=== PATIENT | female | born 1980 | race Caucasian/White ===

== ENCOUNTER 2016-12-26 07:56 | Emergency (ER) | payer BC ==
[2016-12-26] MEDS ORDERED: Ketorolac 60 MG/2 ML SDV IM ONE (08:04)
--- NOTE | 2016-12-26 08:07 | EDM.PDOC ---
ED HPI GENERAL MEDICAL PROBLEM - General Chief Complaint: Back Pain or Injury Stated Complaint: BACK PAIN Time Seen by Provider: 12/26/16 08:04 - History of Present Illness INITIAL COMMENTS - FREE TEXT/NARRATIVE: HISTORY AND PHYSICAL: History of present illness: Patient is a 36-year-old female presents with acute low back pain encourage his colon obscures and bent over to [employer] an item she states this is confined to her lower back she denies numbness weakness incontinence or retention or bowel or bladder she denied prior back problems or concerns Review of systems: As per history of present illness and below otherwise all systems reviewed and negative. Past medical history: As per history of present illness and as reviewed below otherwise noncontributory. Surgical history: As per history of present illness and as reviewed below otherwise noncontributory. Social history: No reported history of drug or alcohol abuse. Family history: As per history of present illness and as reviewed below otherwise noncontributory. Physical exam: HEENT: Atraumatic, normocephalic, pupils reactive, negative for conjunctival pallor or scleral icterus, mucous membranes moist, throat clear, neck supple, nontender, trachea midline. Lungs: Clear to auscultation, breath sounds equal bilaterally, chest nontender. Heart: S1S2, regular, negative for clicks, rubs, or JVD. Abdomen: Soft, nondistended, nontender. Negative for masses or hepatosplenomegaly. Negative for costovertebral tenderness. Pelvis: Stable nontender. Genitourinary: Deferred. Rectal: Deferred. Extremities: Atraumatic, negative for cords or calf pain. Neurovascular unremarkable. Neuro: Awake, alert, oriented. Cranial nerves II through XII unremarkable. Cerebellum unremarkable. Motor and sensory unremarkable throughout. Exam nonfocal. Back: Patient is paravertebral tenderness at the level of the lumbar spine no vertebral body or point tenderness noted patient is able to stand on her toes back on her heels deep tendon reflexes are normal motor and sensory are normal Diagnostics: X-ray lumbar spine [facility] [place] [facility]: Toradol 60 mg IM Impression: #1 acute lumbar strain Definitive disposition and diagnosis as appropriate pending reevaluation and review of above. - Related Data Allergies Allergy/AdvReac Type Severity Reaction Status Date / Time Penicillins Allergy Hives Verified 12/26/16 08:01 vancomycin Allergy Hives Verified 12/26/16 08:01 Tape AdvReac Mild Other Uncoded 12/26/16 08:01 Home Meds: Home Meds Pregabalin [Lyrica] 200 mg PO TID 06/06/15 [History] Albuterol [Proair HFA] 1 inh INH ASDIRECTED PRN 06/19/15 [History] ClonazePAM [KlonoPIN] 0.5 tab PO TID PRN 06/19/15 [History] Etonogestrel [Nexplanon] 68 mg SQ ONETIME 06/19/15 [History] DULoxetine [Cymbalta] 20 mg PO DAILY 12/26/16 [History] Montelukast [Singulair] 10 mg PO BEDTIME 12/26/16 [History] Past Medical History Cardiovascular History: Reports: None Respiratory History: Reports: Asthma Other Respiratory History: history of smoking for 1 yr, QUIT 15 yrs ago Gastrointestinal History: Reports: Cholelithiasis Other Gastrointestinal History: Heartburn in only, Genitourinary History: Reports: None, Other (see below) Other Genitourinary History: "stage 4 kidney failure" D[employer] BU[employer]ER History: Reports: Musculoskeletal History: Reports: Back pain, chronic, Fibromyalgia Other Musculoskeletal History: Some low back pain Neurological History: Reports: Headaches, chronic Other Neuro History: Occasional headaches Psychiatric History: Reports: Anxiety, Depression Endocrine/Metabolic History: Reports: None Hematologic History: Reports: None Immunologic History: Reports: None Oncologic (Cancer) History: Reports: None Dermatologic History: Reports: Other (see below) Other Dermatologic History: Dermatitis - Infectious Disease History Infectious Disease History: Reports: None - Past Surgical History Other HEENT Surgeries/Procedures: Wilson teeth extracted GI Surgical History: Reports: Cholecystectomy Other Female Surgeries/Procedures: Nor Implant, 3 prior C-sections Social & Family History - Tobacco Use Smoking Status *Q: Current Some Day Smoker Years of Tobacco use: 1 Packs/Tins Daily: 0.7 Used Tobacco, but Quit: Yes - Alcohol Use Days Per Week of Alcohol Use: 0 - Recreational Drug Use Recreational Drug Use: No Drug Use in Last 12 Months: No Recreational Drug Type: Reports: Marijuana/Hashish Recreational Drug Use Frequency: Rarely ED ROS GENERAL - Review of Systems Review Of Systems: ROS reveals no pertinent complaints other than HPI. ED EXAM, GENERAL - Physical Exam Exam: See Below (Dictation) Course - Vital Signs Last Recorded V/S: Last Vital Signs Temp 36.3 C 12/26/16 08:06 Pulse 79 12/26/16 08:06 Resp 16 12/26/16 08:06 BP 127/77 12/26/16 08:06 Pulse Ox 97 12/26/16 08:06 - Orders/Labs/Meds Labs: Laboratory Tests 12/26/16 12/26/16 12/26/16 Range/Units 08:20 08:20 08:20 Urine Color YELLOW Urine Appearance CLEAR Urine pH 6.0 (5.0-8.0) Ur Specific [place] >= 1.030 (1.001-1.035) Urine Protein 100 (NEGATIVE) mg/dL Urine Glucose (UA) NEGATIVE (NEGATIVE) mg/dL Urine Ketones NEGATIVE (NEGATIVE) mg/dL Urine Occult Blood LARGE H (NEGATIVE) Urine Nitrite NEGATIVE (NEGATIVE) Urine Bilirubin NEGATIVE (NEGATIVE) Urine Urobilinogen 1.0 (<2.0) EU/dL Ur Leukocyte Esterase NEGATIVE (NEGATIVE) Urine RBC 35-40 (0-2/HPF) Urine WBC 1-3 (0-5/HPF) Ur Epithelial Cells MODERATE (NONE-FEW) Urine Bacteria 2+ H (NEGATIVE) Urine Mucus LIGHT (NONE-MOD) Urine HCG, Qual NEGATIVE (NEGATIVE) Urine Opiates Screen NEGATIVE (NEGATIVE) Ur Oxycodone Screen NEGATIVE (NEGATIVE) Urine Methadone Screen NEGATIVE (NEGATIVE) Ur Barbiturates Screen NEGATIVE (NEGATIVE) Ur Phencyclidine Scrn NEGATIVE (NEGATIVE) Ur Amphetamine Screen NEGATIVE (NEGATIVE) U Methamphetamines Scrn NEGATIVE (NEGATIVE) U Benzodiazepines Scrn NEGATIVE (NEGATIVE) U Cocaine Metab Screen NEGATIVE (NEGATIVE) U Marijuana (THC) Screen POSITIVE (NEGATIVE) Meds: Medications Discontinued Medications Generic Name Dose Route Start Last Admin Trade Name Freq PRN Reason Stop Dose Admin Ketorolac Tromethamine 60 mg 12/26/16 08:04 12/26/16 08:22 Toradol IM 12/26/16 08:05 60 mg ONETIME ONE Administration Departure - Departure Time of Disposition: 10:04 Disposition: Home, Self-Care 01 Condition: good Clinical Impression: Lumbar strain Forms: ED Department Discharge Additional Instructions: The following information is given to patients seen in the emergency department who are being discharged to home. This information is to outline your options for follow-up care. We provide all patients seen in our emergency department with a follow-up referral. The need for follow-up, as well as the timing and circumstances, are variable depending upon the specifics of your emergency department visit. If you don't have a primary care physician on staff, we will provide you with a referral. We always advise you to contact your personal physician following an emergency department visit to inform them of the circumstance of the visit and for follow-up with them and/or the need for any referrals to a consulting specialist. The emergency department will also refer you to a specialist when appropriate. This referral assures that you have the opportunity for followup care with a specialist. All of these measure are taken in an effort to provide you with optimal care, which includes your followup. Under all circumstances we always encourage you to contact your private physician who remains a resource for coordinating your care. When calling for followup care, please make the office aware that this follow-up is from your recent emergency room visit. If for any reason you are refused follow-up, please contact the [facility] emergency department at and asked to speak to the emergency department charge nurse. Anaprox Robaxin as prescribed follow up primary medical doctor one to 2 days return as needed as discussed
--- NOTE | 2016-12-26 09:25 | CR ---
EXAMINATION: Lumbar spine HISTORY: Pain COMPARISON: None TECHNIQUE: AP and lateral views FINDINGS: The lumbar spinal alignment is grossly unremarkable. The vertebral body heights and disc s paces appear well-maintained. No definite fracture or dislocation. The SI joints are symmetric. Chol ecystectomy clips are noted. IMPRESSION: 1. No acute osseous abnormality identified.
[2016-12-26 10:38] VITALS: BP 112/69
== END 2016-12-26 10:15 | disposition home or self-care (01) ==
LOC: MW.ED 07:56
DX: S39.012A Strain of muscle, fascia and tendon of lower back, initial encounter (principal); F17.210 Nicotine dependence, cigarettes, uncomplicated; Z88.0 Allergy status to penicillin; Z88.8 Allergy status to other drugs, medicaments and biological substances; Z79.899 Other long term (current) drug therapy; Z90.89 Acquired absence of other organs; X58.XXXA Exposure to other specified factors, initial encounter
CPT/HCPCS: 72100; 81001; 81025; 96372; 99283; G0478; J1885; 80305

== ENCOUNTER 2017-09-30 06:26 | Day surgery (SDC) | payer BC ==
[~2017-09-30 06:26] MED LIST: Lactated Ringers 1,000 ML IV SCH
[2017-09-30] MEDS ORDERED: Ondansetron 4 MG/2 ML SDV ONE (07:34)
[2017-09-30] MEDS ORDERED: Midazolam 1 MG/ML 2 ML SDV ONE (07:35)
[2017-09-30] MEDS ORDERED: Propofol 200 MG/20 ML SDV ONE ×3 (07:35→09:04)
[2017-09-30] MEDS ORDERED: fentaNYL 100 MCG/2 ML SDV ONE ×2 (07:35→08:47)
--- NOTE | 2017-09-30 07:37 | PCM.PREANE ---
Preanesthetic Assessment - Anesthesia/Transfusion/Family Hx Anesthesia History: Prior Anesthesia Without Reaction Other Type of Anesthesia Reaction Comment: No known problem in past Family History of Anesthesia Reaction: No Transfusion History: No Prior Transfusion(s) - Review of Systems General: No Symptoms Pulmonary: No Symptoms Cardiovascular: No Symptoms Gastrointestinal: No Symptoms Neurological: No Symptoms Other: Reports: None - Physical Assessment NPO Status Date: 09/29/17 NPO Status Time: 23:00 O2 Sat by Pulse Oximetry: 99 Respiratory Rate: 16 Vital Signs: Last Vital Signs Temp 36.4 C 09/30/17 06:46 Pulse 85 09/30/17 06:46 Resp 16 09/30/17 06:46 BP 130/86 09/30/17 06:46 Pulse Ox 99 09/30/17 06:46 Height: 1.6 m Weight: 103.873 kg ASA Class: 2 Mental Status: Alert & Oriented x3 Airway Class: Mallampati = 2 Dentition: Reports: Normal Dentition ROM/Head Extension: Full Lungs: Clear to Auscultation, Normal Respiratory Effort Cardiovascular: Regular Rate, Regular Rhythm - Lab Values: Laboratory Last Values Urine HCG, Qual NEGATIVE (NEGATIVE) 09/30/17 06:29 - Allergies Allergies/Adverse Reactions: Allergies Allergy/AdvReac Type Severity Reaction Status Date / Time Penicillins Allergy Hives Verified 09/25/17 10:19 vancomycin Allergy Hives Verified 09/25/17 10:19 Tape AdvReac Mild Other Uncoded 09/25/17 10:19 - Anesthesia Plan Pre-Op Medication Ordered: None - Acknowledgements Anesthesia Type Planned: General Anesthesia Pt an Appropriate Candidate for the Planned Anesthesia: Yes Alternatives and Risks of Anesthesia Discussed w Pt/Guardian: Yes Pt/Guardian Understands and Agrees with Anesthesia Plan: Yes PreAnesthesia Questionnaire Other HEENT History: wears glasses Cardiovascular History: Reports: None Respiratory History: Reports: Asthma Other Respiratory History: "well controlled", uses inhaler 2x per month Gastrointestinal History: Reports: Cholelithiasis Other Gastrointestinal History: Heartburn in only, Genitourinary History: Reports: None, Other (See Below) Other Genitourinary History: "stage 4 kidney failure" 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: Musculoskeletal History: Reports: Fracture, Fibromyalgia Other Musculoskeletal History: hx of fx foot Neurological History: Reports: Migraines Other Neuro History: Occasional headaches Psychiatric History: Reports: Anxiety, Depression Endocrine/Metabolic History: Reports: Obesity/BMI 30+ Hematologic History: Reports: None Immunologic History: Reports: None Oncologic (Cancer) History: Reports: None Dermatologic History: Reports: Other (See Below) Other Dermatologic History: Dermatitis - Infectious Disease History Infectious Disease History: Reports: None - Past Surgical History Head Surgeries/Procedures: Reports: None GI Surgical History: Reports: Cholecystectomy Female Surgical History: Reports: Section - SUBSTANCE USE Smoking Status *Q: Never Smoker Tobacco Use Within Last Twelve Months: Cigarettes Second Hand Smoke Exposure: Yes Days Per Week of Alcohol Use: 0 Recreational Drug Use History: No Recreational Drug Type: Reports: Marijuana/Hashish - HOME MEDS Home Medications: Home Meds Etonogestrel [Nexplanon] 68 mg SQ ONETIME 06/19/15 [History] Albuterol Sulfate [Proair Hfa] 1 - 2 puff INH Q4H PRN 09/25/17 [History] - CURRENT (IN HOUSE) MEDS Current Meds: Current Medications Lactated Ringer's (Ringers, Lactated) 1,000 mls @ 100 mls/hr IV ASDIRECTED [facility] Last Admin: 09/30/17 06:48 Dose: 100 mls/hr
[2017-09-30] MEDS ORDERED: EPINEPHrine 1 MG/ML SDV ONE (07:38)
[2017-09-30] MEDS ORDERED: Oxymetazoline 0.05% Nasal Spray 15 ML Bottle ONE (07:38)
[2017-09-30] MEDS ORDERED: Rocuronium 10 MG/ML 10 ML Syringe ONE (07:44)
[2017-09-30] MEDS ORDERED: Dexamethasone 4 MG/ML 5 ML MDV ONE (07:44)
[2017-09-30] MEDS ORDERED: Morphine 10 MG/ML Syringe ONE (07:45)
[2017-09-30] MEDS ORDERED: Sugammadex Sodium 200 MG/2 ML VIAL ONE (07:51)
[2017-09-30] MEDS ORDERED: cefOXitin 1 GM Vial ONE ×2 (08:29)
[2017-09-30] MEDS ORDERED: Sodium Chloride 0.9% 40 ML ONE (08:30)
[2017-09-30] MEDS ORDERED: Acetaminophen 1,000 MG in Premix Bag 1 BAG IV ONE (09:40)
[2017-09-30] MEDS: fentaNYL 100 MCG/2 ML SDV IVPUSH PRN ×5 (09:47→11:27)
[2017-09-30] MEDS ORDERED: Labetalol 100 MG/20 ML MDV ONE (09:54)
[2017-09-30] MEDS: Labetalol 100 MG/20 ML MDV IVPUSH ONE ×3 (09:55→10:10)
--- NOTE | 2017-09-30 10:41 | PCM.POSTAN ---
POST ANESTHESIA ASSESSMENT - MENTAL STATUS Mental Status: Alert, Oriented - RESPIRATORY Respiratory Status: Respiratory Rate WNL, Airway Patent, O2 Saturation Stable - CARDIOVASCULAR CV Status: Pulse Rate WNL, Blood Pressure Stable - GASTROINTESTINAL GI Status: No Symptoms - POST OP HYDRATION Hydration Status: Adequate & Stable
[2017-09-30] MEDS: oxyCODONE 5 MG Tab PO PRN ×2 (11:27→12:56)
--- NOTE | 2017-09-30 11:40 | PCM48HPAN ---
Post Anesthesia Note - EVALUATION WITHIN 48HRS OF ANESTHETIC Vital Signs in Normal Range: Yes Patient Participated in Evaluation: Yes Respiratory Function Stable: Yes Airway Patent: Yes Cardiovascular Function Stable: Yes Hydration Status Stable: Yes Pain Control Satisfactory: Yes Nausea and Vomiting Control Satisfactory: Yes Mental Status Recovered: Yes
--- NOTE | 2017-09-30 11:55 | PCM.OPNOTE ---
- General Post-Op/Procedure Note Condition: Good Free Text/Narrative:: Intake & Output 09/29/17 09/30/17 09/30/17 22:59 06:59 14:59 Intake Total 2200 Balance 2200 Diagnosis: Recurrent acute tonsillitis Procedure: Bilateral tonsillectomy Surgeon: Marielos Dail MD Anesthesia: GA Anesthesiologist: Royer Benavides MD Date of procedure:09/30/17 Indications: Recurrent tonsillitis Findings: Bran gr 2 cryptic tonsils; adherent to tonsillar bed Operation Details: An informed consent was obtained. A time out was performed and the patient was brought back to the operating room. General anesthesia was administered with an endotracheal tube. The table was turned 90 away from the anesthesia cart. Patient was appropriately positioned on the operating table. An appropriately sized Mushtaq Eldon mouth gag was positioned and suspended from a Sauer stand. The right tonsil was grasped with a Jd Brown tonsil holding forceps, upper pole dissected with bipolar forceps; remaining dissection was a combination of bipolar and cold steel. The lower pole was clamped with a negus forceps and ligated with a 2.0 silk tie. The tonsillar fossa was packed with an oxymetazoline 0.05% soaked 2 x 2 gauze. The left tonsil was then similarly dissected and clamped and ligated and fossa packed with an oxymetazoline 0.05% soaked 2 x 2 gauze. Hemostasis was achieved bilaterally with the bipolar cautery at a setting of 10 W. Bilateral fossae were irrigated with warm saline and hemostasis was ensured. Postnasal space was suctioned clear. Bilaterally the upper and lower poles were sutured with 2.0 vicryl. This concluded the procedure. Mouth gag was removed the oral cavity was inspected. Lips gums and teeth were intact. Lubricating jelly was applied to the lips. The patient was turned over to the anesthesiologist for recovery. Specimens: bilateral tonsils Blood loss : 60 ml Blood products: nil Disposition: PACU for recovery Follow up: As required.
[2017-09-30 14:06] VITALS: BP 152/72
== END 2017-09-30 13:30 | disposition home or self-care (01) ==
LOC: MW.SDS 06:26
PROVIDERS: ATTEND Otolaryngology
DX: J03.91 Acute recurrent tonsillitis, unspecified (principal); F41.9 Anxiety disorder, unspecified; J45.909 Unspecified asthma, uncomplicated; F32.9 Major depressive disorder, single episode, unspecified; Z90.49 Acquired absence of other specified parts of digestive tract; Z88.0 Allergy status to penicillin; Z88.1 Allergy status to other antibiotic agents; Z91.09 Other allergy status, other than to drugs and biological substances
CPT/HCPCS: 42826; 81025; A9270; C9399; J0694; J1100; J2250; J2270; J2405; J3010; J7120; 00170; 88304; J0171; J2704